=== PATIENT | female | born 1980 | race Caucasian/White ===

== ENCOUNTER 2018-08-31 10:16 | Emergency (ER) | payer SELFPAY ==
[2018-08-31 10:21] VITALS: PULSE 71; TEMP 98.3; BMI 29.5
[2018-08-31] MEDS ORDERED: SODIUM CHLORIDE 1,000 ML IV STA (10:45)
[2018-08-31] MEDS ORDERED: ONDANSETRON 4 MG/2 ML VIAL IVPUSH ONE (10:45)
--- NOTE | 2018-08-31 10:52 | PDOC ---
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) Past History - Past Medical History Allergies/Adverse Reactions: Allergies Allergy/AdvReac Type Severity Reaction Status Date / Time No Known Allergies Allergy Verified 08/31/18 10:18 Home Medications: Ambulatory Orders NK [No Known Home Medication] 12/10/15 COPD: No - Suicide/Smoking/Psychosocial Hx Smoking History: Never smoked Have you smoked in the past 12 months: No Hx Alcohol Use: No Drug/Substance Use Hx: No Substance Use Type: None Abd/GI Specific PMHX - Complaint Specific PMHX Colitis: No Diverticulitis: No GERD: No *Physical Exam - Vital Signs Last Vital Signs Temp Pulse Resp BP Pulse Ox 98.3 F 71 16 129/71 97 08/31/18 10:17 08/31/18 10:17 08/31/18 10:17 08/31/18 10:17 08/31/18 10:17 - Physical Exam General Appearance: No: Apparent Distress Respiratory/Chest: positive: Lungs Clear, Normal Breath Sounds. negative: Respiratory Distress Cardiovascular: positive: Regular Rhythm, Regular Rate, S1, S2. negative: Murmur Gastrointestinal/Abdominal: positive: Normal Bowel Sounds, Soft. negative: Tender, Distended, Guarding, Rebound Musculoskeletal: negative: CVA Tenderness Integumentary: positive: Normal Color Neurologic: positive: Fully Oriented, Alert, Normal Mood/Affect Moderate Sedation - Procedure Monitoring Vital Signs: Procedure Monitoring Vital Signs Temperature 98.3 F 08/31/18 10:17 Pulse Rate 71 08/31/18 10:17 Respiratory Rate 16 08/31/18 10:17 Blood Pressure 129/71 08/31/18 10:17 O2 Sat by Pulse Oximetry (%) 97 08/31/18 10:17 ED Treatment Course - LABORATORY CBC & Chemistry Diagram: 08/31/18 11:18 08/31/18 11:18 Medical Decision Making - Medical Decision Making 38 y/o F hx of hysterectomy (around 4 years ago) presents with 2 episodes of NBNB emesis along with dull epigastric pain (3/10) from this morning along with feeling lightheaded. Denies fever, chills, sob, cp, diarrhea, urinary complaints. Consider gastritis/less suspicious for acute cholecystitis, pancreatitis; also consider ACS Plan: Labs, EKG, IVF, Zofran, reassess 08/31/18 10:50 Labs reviewed and unremarkable Patient tolerating PO Stable for d/c - advised f/u with PCP 08/31/18 12:27 *DC/Admit/Observation/Transfer Diagnosis at time of Disposition: Emesis Qualifiers: Vomiting type: unspecified Vomiting Intractability: non-intractable Nausea presence: with nausea Qualified Code(s): R11.2 - Nausea with vomiting, unspecified - Discharge Dispostion Disposition: HOME Condition at time of disposition: Improved Decision to Admit order: No - Referrals - Patient Instructions Printed Discharge Instructions: DI for Vomiting -- Adult Additional Instructions: Thank you for choosing [facility]. It was a pleasure taking care of you. Recommend eating light foods like applesauce, toast, plain rice, plain yogurt, banana until starting to feel better Drink at least 2 liters of water daily Follow-up with your primary care doctor in 2-3 days Return to the Emergency Department if your symptoms worsen or persist, you have fever, shortness of breath, chest pain, severe abdominal pain, vomiting, black or bloody stools or other concerning symptoms. Tami por elegir el [facility]. Fue un placer cuidar de ti. Recomiende comer alimentos ligeros elva la compota de manzana, tostadas, arroz comn, yogur natural, pltano hasta que empiece a sentirse mejor. Beber al menos 2 litros de agua al da. Seguimiento con jimenez mdico de atencin primaria en 2-3 lopez. Regrese al [facility] si marilee sntomas empeoran o persisten, tiene fiebre, falta de aliento, dolor en el pecho, dolor abdominal intenso, vmitos, heces negras o con tiana u otros sntomas relacionados. - Post Discharge Activity
[2018-08-31 11:26] LABS: BASO % 0.3 % (0-2.0); EOS % 0.5 % (0-4.5); HEMATOCRIT 39.8 % (32.4-45.2); HEMOGLOBIN 13.8 GM/dL (10.7-15.3); LYMPH % 21.8 % (8-40); MCHC 34.6 g/dl (32.0-36.0); MEAN CELL VOLUME 95.2 fl (80-96); MEAN PLT VOLUME 8.6 fl (7.5-11.1); MONO % 4.5 % (3.8-10.2); NEUT % 72.9 % (42.8-82.8); PLATELET COUNT 224 K/MM3 (134-434); RBC 4.19 M/mm3 (3.60-5.2); RDW 12.3 % (11.6-15.6); WHITE BLOOD COUNT 6.1 K/mm3 (4.0-10.0)
[2018-08-31] MEDS ORDERED: ONDANSETRON 4 MG/2 ML VIAL ONE (11:51)
[2018-08-31 12:07] LABS: ALBUMIN 3.7 g/dl (3.4-5.0); ALK PHOS 102 U/L (45-117); ANION GAP 4 MMOL/L (8-16); BILIRUBIN,TOTAL 0.2 mg/dL (0.2-1); BLOOD UREA NITROGEN 9 mg/dL (7-18); CALCIUM 8.8 mg/dL (8.5-10.1); CHLORIDE 105 mmol/L (98-107); CO2 28 mmol/L (21-32); CREATININE 0.6 mg/dL (0.55-1.3); GLUCOSE,RANDOM 101 mg/dL (74-106); LIPASE 141 U/L (73-393); POTASSIUM 4.2 mmol/L (3.5-5.1); SGOT/AST 20 U/L (15-37); SGPT/ALT 21 U/L (13-61); SODIUM 137 mmol/L (136-145); TOT PROT 7.8 g/dl (6.4-8.2)
[2018-08-31 13:38] VITALS: BP 127/65
--- NOTE | 2018-08-31 20:17 | EKG ---
Test Reason : Blood Pressure : / mmHG Vent. Rate : 062 BPM Atrial Rate : 062 BPM P-R Int : 156 ms QRS Dur : 100 ms QT Int : 420 ms P-R-T Axes : 021 061 010 degrees QTc Int : 426 ms NORMAL SINUS RHYTHM NORMAL ECG NO PREVIOUS ECGS AVAILABLE Confirmed by PRESTON WOLF, PEMA ([id number] on 08/31/2018 8:17:09 PM Referred By: Confirmed By:PEMA JOHNSTON MD
== END 2018-08-31 13:39 | disposition home or self-care (01) ==
LOC: JER 10:16
PROC: 3E033GC Introduction of Other Therapeutic Substance into Peripheral Vein, Percutaneous Approach (ICD-10-PCS; principal; 2018-08-31)
PROC: 3E0337Z Introduction of Electrolytic and Water Balance Substance into Peripheral Vein, Percutaneous Approach (ICD-10-PCS; 2018-08-31)
DX: R11.2 Nausea with vomiting, unspecified (principal)
CPT/HCPCS: 36415; 80053; 83690; 84484; 85025; 93005; 93010; 99284-25; J7030

== ENCOUNTER 2020-10-01 11:26 | Emergency (ER) | payer OTHER ==
[2020-10-01 11:33] VITALS: BP 102/50; PULSE 76; TEMP 97.8; BMI 25.4
[2020-10-01] MEDS ORDERED: IBUPROFEN 600 MG TABLET (FP) PO ONE ×2 (12:01→12:03)
== END 2020-10-01 12:23 | disposition home or self-care (01) ==
LOC: JERFT 11:26
DX: S53.401A Unspecified sprain of right elbow, initial encounter (principal)
CPT/HCPCS: 73060-TC-RT-FY; 99283-25